=== PATIENT | female | born 1975 ===

== ENCOUNTER 2016-07-18 10:28 | Emergency (ER) | payer BC, MEDICAID, OTHER ==
--- NOTE | 2016-07-18 11:49 | UC ---
I, Sourav,Crystal, scribed for Ela Horton MD on 07/18/16 at 1145 . Respiratory Complaint HPI - HPI Summary HPI Summary: This 41 y/o female presents to [facility] for upper respiratory illness since 2 days ago. Positive sneezing, productive cough with white sputum production, stuffy nose, frontal ALBERTO, chills, general myalgia, and right ear popping. Negative fever. She has been controlling symptoms with IBP 600 mg, alleve, and nasal spray. Pt is current smoker with patch on since 5 days ago. Pt is a , and is currently working as coordinator. Med list is reviewed and confirmed with pt. Allergies info, NKDA, is reviewed and confirmed with pt. - History of Current Complaint Chief Complaint: UCRespiratory Stated Complaint: RESP ISSUE Time Seen by Provider: 07/18/16 11:35 Hx Obtained From: Patient Hx Last Menstrual Period: 06/18/16 ?: No Onset/Duration: Lasting Days, Still Present Timing: Constant Character: Cough: Productive - white sputum production Aggravating Factors: Nothing Alleviating Factors: Nothing Associated Signs And Symptoms: Positive: Chills, URI, Nasal Congestion. Negative: Fever - Allergies/Home Medications Allergies/Adverse Reactions: Allergies Allergy/AdvReac Type Severity Reaction Status Date / Time No Known Allergies Allergy Verified 07/18/16 10:43 Home Medications: Home Medications Cetirizine* [ZyrTEC 10 MG TAB*] 10 mg PO DAILY 07/18/16 [History Confirmed 07/18] PMH/Surg Hx/FS Hx/Imm Hx Previously Healthy: Yes - Pt denies any PMHx - Surgical History Surgical History: None - Family History Known Family History: Negative: Cardiac Disease, Diabetes - Social History Occupation: Employed Full-time Lives: With Family Alcohol Use: None Substance Use Type: None Smoking Status (MU): Former Smoker Review of Systems Constitutional: Chills Skin: Negative Eyes: Negative ENT: Other - right ear popping, nasal congestion, and sneezing Respiratory: Cough - white sputum production Cardiovascular: Negative Gastrointestinal: Negative Genitourinary: Negative Motor: Negative Neurovascular: Negative Musculoskeletal: Negative Neurological: Headache - frontal Psychological: Negative All Other Systems Reviewed And Are Negative: Yes Physical Exam Triage Information Reviewed: Yes Vital Signs: Initial Vital Signs Temp 98 F 07/18/16 10:44 Pulse 87 07/18/16 10:44 Resp 16 07/18/16 10:44 BP 150/106 07/18/16 10:44 Pulse Ox 99 07/18/16 10:44 Vital Signs Reviewed: Yes Eye Exam: Normal ENT Exam: Normal ENT: Positive: Nasal drainage. Negative: Pharynx normal, TMs normal - Fluid TM R>L turbinates boggy and inflammed, green discharge + PND no exudate, no erythema + TTP max sinuses Dental Exam: Normal Neck exam: Normal Neck: Positive: Supple Respiratory Exam: Normal Cardiovascular Exam: Normal Cardiovascular: Positive: RRR, No Murmur, Pulses Normal Abdominal Exam: Normal Abdomen Description: Positive: Nontender Musculoskeletal Exam: Normal Neurological Exam: Normal Psychological Exam: Normal Skin Exam: Normal UC Diagnostic Evaluation - Laboratory O2 Sat by Pulse Oximetry: 99 Respiratory Course/Dx - Course Course Of Treatment: Pt with head congestion, PND, pressure in sinuses, mas R> L. exam c/w sinusitis. abx. secretion precaution. decongestant - Differential Dx/Diagnosis Provider Diagnoses: sinusitis Discharge - Discharge Plan Condition: Stable Disposition: HOME Prescriptions: Amoxicillin (*) [Amoxicillin 875 MG (*)] 875 mg PO BID #20 tab Patient Education Materials: Sinusitis (ED) Referrals: Non Staff,Doctor [Primary Care Provider] - Additional Instructions: - Stay well hydrated. Drink plenty of non-alcoholic, non-caffinated beverages - Alternate ibuprofen (Advil, Motrin) 600mg and Tylenol every 3 hours for pain or fever. Take with food. Do NOT take for more than 4-5 days. - Take antibiotics as prescribed until gone - After you have been on antibiotics for 2 days - change your toothbrush and your pillowcase. These infections are spread by secretions - do NOT share eating or drinking utensils - clean items you share with other people such as cell phones, computer mouse, TV remote, computer tablets, etc - Continue with Zyrtec and nasal spray as previously prescribed - Contact your doctor to schedule a follow-up appointment The documentation as recorded by the Sourav cameron Soohyun accurately reflects the service I personally performed and the decisions made by , Ela Horton MD.
== END 2016-07-18 11:55 | disposition home or self-care (01) ==
LOC: UCEAST 10:28
DX: J32.9 Chronic sinusitis, unspecified (principal); Z87.891 Personal history of nicotine dependence
CPT/HCPCS: 99201; G0463

== ENCOUNTER 2017-04-05 07:31 | Emergency (ER) | payer BC ==
[2017-04-05] MEDS ORDERED: Ketorolac INJ* 30 MG/ML 1 ML VIAL IM ONE (08:22)
[2017-04-05] MEDS ORDERED: Cyclobenzaprine TAB* 10 MG PO ONE (08:22)
--- NOTE | 2017-04-05 08:30 | UC ---
Viktoriya Valenzuela Gabriel, scribed for Ela Horton MD on 04/05/17 at 0819 . Back Pain HPI - HPI Summary HPI Summary: This patient is a 42 year old F presenting to [facility] [place] [facility] [place] by her with a chief complaint of back pain since 1999 last night. The patient rates the aching/stabbing pain 8/10 in severity. Symptoms aggravated by movement and sitting. Symptoms alleviated by Aleve - last does 2am. Patient reports mid back pain and burning skin pain. Patient denies incontinence, visual changes, bleeding from eyes/ears/mouth, and ABD pain. Pt was using her inversion table last night and did not have her feet hooked in properly causing her to slip off , landing on her head and back. No h/o neck or back prolemss. She experienced some nausea this morning that has resolved after eating. Pt denies any chance of . Last tetanus shot was more than 10 years ago. Patients medication reviewed during this visit. - History of Current Complaint Chief Complaint: UCBackPain Stated Complaint: HEAD AND NECK INJURY Time Seen by Provider: 04/05/17 08:04 Hx Obtained From: Patient, Family/[employer] Hx Last Menstrual Period: 2 weeks ago Onset/Duration: Sudden Onset, Lasting Hours, Still Present Timing: Constant Severity Initially: Moderate Pain Intensity: 8 Pain Scale Used: 0-10 Numeric Back Pain: Is Discrete @ - upper mid back Character: Sharp, Aching Aggravating Factor(s): Movement, Other - sitting Alleviating Factor(s): OTC Meds Associated Signs And Symptoms: Positive: Negative - incontinence, visual changes , bleeding from eyes/ears/mouth, and ABD pain, Other. Negative: Weakness - Allergies/Home Medications Allergies/Adverse Reactions: Allergies Allergy/AdvReac Type Severity Reaction Status Date / Time No Known Allergies Allergy Verified 07/18/16 10:43 Home Medications: Home Medications Metoprolol Tartrate TAB* [Lopressor TAB*] 25 mg PO DAILY 04/05/17 [History Confirmed 04/05/17] Naproxen Sodium [Aleve] 220 mg PO PRN 04/05/17 [History] PMH/Surg Hx/FS Hx/Imm Hx Previously Healthy: Yes Cardiovascular History: Hypertension, Other Other Cardiovascular History: HLD Psychological History: Anxiety - Surgical History Surgical History: None - Family History Known Family History: Positive: Hypertension Negative: Cardiac Disease, Diabetes - Social History Occupation: Employed Full-time Lives: With Family Alcohol Use: Rare Substance Use Type: None Smoking Status (MU): Light Every Day Tobacco Smoker Review of Systems Constitutional: Negative Skin: Negative Gastrointestinal: Negative, Nausea - that resolved after eating Musculoskeletal: Other: - back and neck pain All Other Systems Reviewed And Are Negative: Yes Physical Exam Triage Information Reviewed: Yes Appearance: Well-Appearing, Well-Nourished, Pain Distress - discomfort with movement Vital Signs: Initial Vital Signs Temp 97.9 F 04/05/17 07:39 Pulse 90 04/05/17 07:39 Resp 18 04/05/17 07:39 BP 155/98 04/05/17 07:39 Pulse Ox 97 04/05/17 07:39 Vital Signs Reviewed: Yes Eye Exam: Normal Eyes: Positive: Conjunctiva Clear ENT Exam: Normal ENT: Positive: Normal ENT inspection, Hearing grossly normal, Pharynx normal, Pharyngeal erythema Dental Exam: Normal Neck exam: Normal Neck: Positive: Supple, Nontender, No Lymphadenopathy Respiratory Exam: Normal Respiratory: Positive: Chest non-tender, Lungs clear, Normal breath sounds, No respiratory distress, No accessory muscle use Cardiovascular Exam: Normal Cardiovascular: Positive: RRR, No Murmur, Pulses Normal Abdominal Exam: Normal Abdomen Description: Positive: Nontender, No Organomegaly, Soft Bowel Sounds: Positive: Present Musculoskeletal: Positive: Other: - no spinous process pain c/t/l/s Full AROM c spine + TTP paraspinal upper thoracic R> no step off no crepitus no spinous process pain c/t/l/s Neurological Exam: Normal Neurological: Positive: Alert, Muscle Tone Normal Psychological Exam: Normal Skin: Positive: Other - skin abraison over C4-T1 skin - no suturable Diagnostics - Radiology T spine Xray Radiology Interpretation Completed By: Radiologist - COMPRESSION FRACTURE OF LOWER DORSAL VERTEBRAL BODY AGE INDETERMINATE ALTHOUGH LIKELY OLD. RECOMMEND CORRELATION WITH THE PATIENT'S CLINICAL SYMPTOMS. Dr. Horton has reviewed this report C-spine Xray Radiology Interpretation Completed By: Radiologist - 1. NO EVIDENCE FOR FRACTURE. 2. MILD DEGENERATIVE DISC DISEASE. Dr. Horton has reviewed this report. CT T spine Radiology Interpretation Completed By: Radiologist - ACUTE MODERATE GRADE COMPRESSION FRACTURE OF THE T10 VERTEBRAL BODY. Dr Horton has reviewed this report. Re-Evaluation - Re-Evaluation First Eval Re-Evaluation Time: 09:34 Change: Improved Comment: Pt states her pain has mildly improved, we discussed Xray results, and I will order a T spine CT. Second Eval Re-Evaluation Time: 10:29 Change: Unchanged Comment: I discussed CT results with pt and talked about pain management, Pt will be given Vicodin for pain and Zofran if she gets nauseous. She has agreed to update her tetanus. Currently awaiting a call from Dr. Bueno. Third Eval Comment: d/w dr. Bueno -. okay to d/c. pain control. office f/u 2-3 week. d/w pt. recommend stool softner. motrin/apap (Rx norco). Pt with Rx valium. norco and vailum prescautions discussed. pt tolerate Wild Rose at urgent care without nausea. declined work note. pt and comfortable and in agreement with plan. Of note - unable to transmit Wild Rose - error with Dr. Garcia - Rika Jo NP reviewed chart and transmitted controlled substance to facilitate pt discharge Back Pain Course/Dx - Course Course Of Treatment: BP noted and advised to follow up with PCP. Pt with upper , mid back pain s/p sliding off inversion table last evening. pt with skin abraison over distal cervical area. TTP paraspinal thoracic area. will check imaging. muscle relaxer. IM toradol. reassess. pt comfortable and in agreement. at bedside - Differential Dx/Diagnosis Provider Diagnoses: HTN - Physician Notifications Discussed Care With: Wilner Bueno Time Discussed With Above Provider: 10:47 Instructed by Provider To: Other - I discussed patient care with Dr. Bueno and he suggested pain control and to follow up with him in 2-3 weeks. Additionally he suggests not using a back brace because they can cause more pain. Discharge - Discharge Plan Condition: Stable Disposition: HOME Prescriptions: HYDROcodone/ACETAMIN 5-325 MG* [Wild Rose 5-325 TAB*] 1 - 2 tab PO Q6H PRN #30 tab MDD 8 PRN Reason: Pain - Moderate To Severe Patient Education Materials: Diphtheria/Pertussis/Tetanus Vaccine (By injection ), Vertebral Compression Fracture (ED) Referrals: Wilner Bueno MD [Medical Doctor] - 2 Weeks Non Staff,Doctor [Primary Care Provider] - Additional Instructions: - Okay to alternate ibuprofen (Advil, Motrin) and Tylenol product (Tylenol or Wild Rose) every 3 hours for pain or fever. Take with food. Do NOT take for more than 4-5 days. Wild Rose may cause constipation. Use a stool softner as needed - Okay to take valium as previously prescribed for muscle spasm - Wear support brace to back for comfort -contact Avoid heavy lifting, bending - Contact Dr. Bueno to scehdule a follow-up appointment. Contact Dr. Bueno or return with questions or concerns - you were given an update to your tetanus today - your arm may be aching tomorrow- this is normal Your blood pressure was elevated during today's visit. Please follow up with your primary care provider in 1-2 weeks. The documentation as recorded by the Viktoriya cameron Gabriel accurately reflects the service I personally performed and the decisions made by me, Ela Horton MD.
--- NOTE | 2017-04-05 09:13 | RAD ---
INDICATION: Back pain, injury. COMPARISON: There are no prior studies available for comparison. TECHNIQUE: AP and lateral films of the dorsal spine were obtained. FINDINGS: There is a mild dorsal scoliosis convex toward the right side. The vertebra are otherwise in normal alignment. There is a moderate compression fracture of a lower dorsal vertebral body approximately T10 age indeterminate although likely old. IMPRESSION: COMPRESSION FRACTURE OF LOWER DORSAL VERTEBRAL BODY AGE INDETERMINATE ALTHOUGH LIKELY OLD. RECOMMEND CORRELATION WITH THE PATIENT'S CLINICAL SYMPTOMS.
--- NOTE | 2017-04-05 09:21 | RAD ---
INDICATION: Injury back pain. COMPARISON: There are no prior studies available for comparison. TECHNIQUE: 3 views of the cervical spine were obtained including lateral, AP and open-mouth odontoid views. FINDINGS: The vertebra are normal alignment. No prevertebral soft tissue swelling or fracture is seen. There is mild degenerative disc disease at the C5-C6 and C6-C7 levels. IMPRESSION: 1. NO EVIDENCE FOR FRACTURE. 2. MILD DEGENERATIVE DISC DISEASE.
[2017-04-05 09:54] VITALS: BP 147/104
--- NOTE | 2017-04-05 10:11 | RAD ---
INDICATION: Trauma compression fracture T10. COMPARISON: Comparison is made with a prior x-ray study of the dorsal spine of the same date. TECHNIQUE: Contiguous axial sections were obtained beginning above the C7 vertebra and scanning through the L1 vertebra. Images were reconstructed in the sagittal and coronal planes. FINDINGS: The vertebra are normal alignment. There is a moderate compression fracture of the T10 vertebral body with loss of height of approximately 40%. The fracture lines are visualized consistent with an acute fracture. There is no retropulsion of fracture fragments. The posterior elements appear intact. There is surrounding soft tissue swelling. No other fractures are seen. No significant spinal canal narrowing is seen. IMPRESSION: ACUTE MODERATE GRADE COMPRESSION FRACTURE OF THE T10 VERTEBRAL BODY.
[2017-04-05] MEDS ORDERED: HYDROcodone/ACETAMIN 5-325 MG* 1 TAB PO ONE (10:27)
[2017-04-05] MEDS ORDERED: Tetan/Diph/Pertus SYR(Tdap)* 0.5 ML SYR(BOOSTRIX) use SYR IM ONE (10:27)
== END 2017-04-05 11:15 | disposition home or self-care (01) ==
LOC: UCEAST 07:31
DX: M54.9 Dorsalgia, unspecified (principal); M48.54XA Collapsed vertebra, not elsewhere classified, thoracic region, initial encounter for fracture; M50.323 Other cervical disc degeneration at C6-C7 level; S20.419A Abrasion of unspecified back wall of thorax, initial encounter; W19.XXXA Unspecified fall, initial encounter; Y93.89 Activity, other specified; Y92.9 Unspecified place or not applicable; Z23 Encounter for immunization; I10 Essential (primary) hypertension; E78.5 Hyperlipidemia, unspecified; F41.9 Anxiety disorder, unspecified; F17.210 Nicotine dependence, cigarettes, uncomplicated
CPT/HCPCS: 72040; 72070; 72128; 90471; 90715; 96372; 99212; A9270-GY; G0463; J1885